=== PATIENT | female | born 1995 | race Asian ===

== ENCOUNTER 2023-07-24 14:23 | Emergency (ER) | payer OTHER ==
[~2023-07-24] VITALS: Ht 154.9 cm; Wt 63.8 kg
[2023-07-24] MEDS ORDERED: MULTTAB20 PO (14:32)
[2023-07-24 15:23] LABS: BASO % 0.6 % (0.0-1.0); EOS # 0.2 10^3/uL (0.0-0.5); EOS % 3.9 % (0.0-3.0); HEMOGLOBIN 13.6 g/dl (12.0-15.5); LYMPH # 1.4 10^3/uL (1.5-5.0); LYMPH % 29.1 % (24.0-44.0); MEAN CORPUSCULAR HEMOGLOBIN 30.7 pg (27.0-33.0); MEAN CORPUSCULAR HGB CONC 33.2 g/dl (32.0-36.5); MEAN CORPUSCULAR VOLUME 92.6 fl (80.0-96.0); MONO # 0.5 10^3/uL (0.0-0.8); MONO % 9.8 % (2.0-8.0); NEUTROPHILS # 2.8 10^3/uL (1.5-8.5); NEUTROPHILS % 56.4 % (36.0-66.0); PLATELET COUNT, AUTOMATED 239 10^3/uL (150-450); RED BLOOD COUNT 4.43 10^6/uL (4.00-5.40); WHITE BLOOD COUNT 4.9 10^3/uL (4.0-10.0)
[2023-07-24 17:00] VITALS: BP 111/76; TEMP 98.2; O2SAT 98
== END 2023-07-24 17:16 | disposition home or self-care (01) ==
LOC: M ED 14:23
DX: O20.0 Threatened abortion (principal); O34.10 Maternal care for benign tumor of corpus uteri, unspecified trimester; Z79.899 Other long term (current) drug therapy

== ENCOUNTER → 2023-07-26 | Outpatient (CLI) | payer OTHER ==
[~2023-07-26] MED LIST: MULTTAB20 PO
== END ==
LOC: M LAB 12:45
PROVIDERS: ATTEND Physician Assistant Medical
DX: O20.0 Threatened abortion (principal); Z3A.00 Weeks of gestation of pregnancy not specified

== ENCOUNTER 2023-11-05 05:32 | Emergency (ER) | payer OTHER ==
[~2023-11-05] VITALS: Ht 154.9 cm; Wt 63.2 kg
[2023-11-05 08:08] LABS: BASO % 0.6 % (0.0-1.0); EOS # 0.3 10^3/uL (0.0-0.5); EOS % 4.8 % (0.0-3.0); HEMATOCRIT 42.4 % (36.0-47.0); HEMOGLOBIN 14.2 g/dl (12.0-15.5); LYMPH # 2.1 10^3/uL (1.5-5.0); MEAN CORPUSCULAR HEMOGLOBIN 30.5 pg (27.0-33.0); MEAN CORPUSCULAR HGB CONC 33.5 g/dl (32.0-36.5); MONO # 0.5 10^3/uL (0.0-0.8); MONO % 8.4 % (2.0-8.0); NEUTROPHILS # 3.4 10^3/uL (1.5-8.5); PLATELET COUNT, AUTOMATED 232 10^3/uL (150-450); RED BLOOD COUNT 4.66 10^6/uL (4.00-5.40); WHITE BLOOD COUNT 6.4 10^3/uL (4.0-10.0)
[2023-11-05 08:35] LABS: BLOOD UREA NITROGEN 13 MG/DL (9-23); CALCIUM LEVEL 8.8 MG/DL (8.5-10.1); CARBON DIOXIDE LEVEL 26 MMOL/L (20-31); CHLORIDE LEVEL 109 MMOL/L (98-107); GLOMERULAR FILTRATION RATE > 60.0 (>60); GLUCOSE, FASTING 87 MG/DL (60-100); POTASSIUM SERUM 3.9 MMOL/L (3.5-5.1); SODIUM LEVEL 139 MMOL/L (136-145)
[2023-11-05 09:40] LABS: HCG, SERUM QUALITATIVE NEGATIVE (NEGATIVE)
[2023-11-05] MEDS ORDERED: VITA250T4 PO (10:04)
[2023-11-05] MEDS ORDERED: OMEGCAP9 PO (10:04)
[2023-11-05] MEDS ORDERED: CVS1CAP2 PO (10:04)
[2023-11-05] MEDS ORDERED: ST JPOW PO (10:04)
[2023-11-05] MEDS ORDERED: FOLI1TAB11 PO (10:04)
[2023-11-05] MEDS ORDERED: L-TH100C2 PO (10:04)
[2023-11-05] MEDS ORDERED: NOXI1TAB PO (10:04)
[2023-11-05] MEDS ORDERED: ZINC220CA PO (10:04)
[2023-11-05] MEDS ORDERED: MIRA3350 PO (10:40)
[2023-11-05 10:54] VITALS: BP 115/77; TEMP 97.4; O2SAT 97
== END 2023-11-05 10:58 | disposition home or self-care (01) ==
LOC: M ED 05:32
DX: K59.00 Constipation, unspecified (principal); K62.5 Hemorrhage of anus and rectum; K64.8 Other hemorrhoids; Z79.899 Other long term (current) drug therapy